=== PATIENT | female | born 1945 | race Caucasian/White ===

== ENCOUNTER → 2018-04-09 12:29 | Outpatient (CLI) | payer MEDICARE, OTHER, SELFPAY ==
--- NOTE | 2018-04-09 | DI.MG.S_ITS ---
UNILATERAL RIGHT DIGITAL SCREENING MAMMOGRAM 3D/2D WITH CAD POST MASTECTOMY: 04/09/2018 CLINICAL: Routine screening. Personal history of left breast cancer. Comparison is made to exams dated: 05/25/2017 ultrasound, 05/18/2017 breast MRI, and 04/08/2017 mammogram - [facility]. The tissue of the right breast is heterogeneously dense. This may lower the sensitivity of mammography. Current study was also evaluated with a Computer Aided Detection (CAD) system. No significant masses, calcifications, or other findings are seen in the breast. There has been no significant interval change. IMPRESSION: NEGATIVE There is no mammographic evidence of malignancy. A 1 year screening mammogram is recommended. This exam was interpreted at Station ID: [id number]. NOTE: For mammograms, a report in lay terms will be sent to the patient. Approximately 15% of breast malignancies will not be visualized mammographically. In the management of a palpable breast mass, a negative mammogram must not discourage biopsy of a clinically suspicious lesion. Electronically Signed By: Jonathan escobedo/aneudy:04/09/2018 15:40:07 copy to: Amy Barnes copy to: Marissa Singletary letter sent: Normal Exam ACR BI-RADS Category 1: Negative [id number]
== END ==
PROVIDERS: PCP Family Medicine; Visit Provider Radiology Radiation Oncology
DX: Z12.31 Encounter for screening mammogram for malignant neoplasm of breast (principal); Z85.3 Personal history of malignant neoplasm of breast
CPT/HCPCS: 77063; 77065

== ENCOUNTER 2018-08-02 15:26 | Emergency (ER) | payer MEDICARE, OTHER, SELFPAY ==
[2018-08-02] VITALS (9 sets, daily range): BP systolic 101–120; BP diastolic 69–83; PULSE 107–189; RESP 16–20; TEMP 36.7; O2SAT 95–100; BMI 27.3
--- NOTE | 2018-08-02 15:38 | ED.ARRPALP ---
HPI - Arrhythmia/Palpitations General Chief Complaint: Arrhythmia/Palpitations Stated Complaint: states AFIB, SOB Time Seen by Provider: 08/02/18 15:38 Source: patient Mode of arrival: ambulatory Limitations: no limitations History of Present Illness HPI narrative: Patient is a 72-year-old female with persistent AFib who on Thursday was started on metoprolol 100 mg b.i.d. by her nurse first aid. This was a change from verapamil that she had been taken for many years. She states that it was changed because the verapamil was not working anymore she states that her heart rate is elevated. She states that it is always elevated. She states that most of her life her heart rate is not less than 120 beats. Patient is on Eliquis. She states she has been taking her metoprolol. She states she has been getting short of breath however this does not seem to be new for her. She is also taking Torsemide I would states that her lower extremity swelling is better than what it normally is. Related Data Home Medications Medication Instructions Recorded Confirmed alprazolam [Xanax] 0.75 mg PO HSP #0 01/05/12 08/02/18 apixaban [Eliquis] 5 mg PO BID #0 05/26/17 08/02/18 atorvastatin [Lipitor] 10 mg PO QPM #0 05/26/17 08/02/18 losartan [Cozaar] 100 mg PO QDAY #0 06/19/17 08/02/18 fluticasone 50 mcg/actuation nasal 1 spray NASAL DAILY 04/27/18 08/02/18 spray,suspension furosemide 20 mg tablet 30 mg PO DAILY 04/27/18 08/02/18 verapamil ER (SR) 180 mg 180 mg PO BID tab 07/27/18 08/02/18 tablet,extended release diclofenac sodium 1 applic TOPICAL DIRECTED 08/02/18 08/02/18 hydrochlorothiazide 1 tab PO DAILY 08/02/18 08/02/18 hydrocodone-acetaminophen 1 tab PO DAILY 08/02/18 08/02/18 lidocaine 1 patch TOPICAL DAILY 08/02/18 08/02/18 metoprolol succinate 1 tab PO BID 08/02/18 08/02/18 montelukast 1 tab PO DAILY 08/02/18 08/02/18 potassium chloride 1 tab PO DAILY 08/02/18 08/02/18 torsemide 20 mg PO DAILY 08/02/18 08/02/18 Allergies Allergy/AdvReac Type Severity Reaction Status Date / Time Sulfa (Sulfonamide Allergy Severe BODY RASH Verified 08/02/18 15:46 Antibiotics) [SULFA (SULFONAMIDE ANTIBIOTICS)] latex [LATEX] Allergy Intermediate RASH Verified 08/02/18 15:46 Penicillins [PENICILLINS] Allergy Unknown AFIB Verified 08/02/18 15:46 adhesive tape AdvReac Verified 08/02/18 15:46 BENEDRYL AdvReac Intermediate HIGH HEART Uncoded 08/02/18 15:46 RATE Hospital bed sheets AdvReac Mild Uncoded 08/02/18 15:46 Review of Systems Constitutional Denies fever(s) ENT Ears, Nose, Mouth, and Throat: Denies vertigo Cardiovascular Denies chest pain, Denies syncope, Reports rapid heart rate, Denies pedal edema, Reports irregular heart rhythm, Denies lightheadedness, Reports palpitations, Reports dyspnea and Reports dyspnea on exertion Respiratory Reports dyspnea, Reports dyspnea on exertion, Denies stridor and Denies wheezing Gastrointestinal Gastrointestinal: Denies abdominal pain and Denies change in stool character Musculoskeletal Denies myalgias and Denies arthralgias Integumentary/Breasts Denies lesions and Denies rash Neurologic Denies vertigo and Denies syncope Endocrine Reports palpitations Hematologic/Lymphatic Denies easy bleeding and Denies easy bruising Allergic/Immunologic Denies wheezing COUNT INCLUDES THE [facility] Medical History Rheumatoid arthritis (Acute ~2003) Surgical History H/O left breast biopsy (Acute ~05/05/17) History of total left hip replacement (Acute ~2011) History of total right hip replacement (Acute ~2009) Hx of heart artery stent (Acute ~2002) Social History Smoking Status: Never smoker Exam Initial Vital Signs Initial Vital Signs: Vital Signs Temperature 98.0 F 08/02/18 15:42 Pulse Rate 160 H 08/02/18 15:42 Respiratory Rate 17 08/02/18 15:42 Blood Pressure 118/74 08/02/18 15:42 Pulse Oximetry 96 08/02/18 15:42 Const General: cooperative, comfortable, well developed, well groomed and No acute distress Orientation: alert, awake and oriented x3 HENMT Head: normal to inspection and normocephalic Resp Effort & Inspection: normal respiratory effort Auscultation: clear to auscultation bilaterally Cardio Rate: tachycardic Rhythm: abnormal rhythm irregularly irregular Pulses: radial pulses present GI Inspection: non-distended Palpation: soft Skin Lesions: no lesions Rashes: no rashes Neuro General: alert, awake and oriented x3 Cognition: normal cognition Speech: speech normal Gait: normal gait Motor: muscle tone normal throughout Sensory Exam: no sensory deficits noted Extrem General: normal to inspection, capillary refill normal and No edema Psych Appearance: grossly normal and well kempt Course Orders Ordered: Discontinued Medications Diltiazem HCl (Cardizem) 20 mg IV NOW ONE Stop: 08/02/18 16:15 Last Admin: 08/02/18 16:14 Dose: 20 mg MDM - Arrhythmia/Palpitations Lab Data Attestation: I reviewed the patient's lab results. Result diagrams: 08/02/18 15:42 08/02/18 15:42 Lab Results 08/02/18 08/02/18 08/02/18 Range/Units 15:42 15:42 17:30 WBC 9.1 (4.5-11.0) X10^3/uL RBC 3.63 L (4.0-5.2) X10^6/uL Hgb 10.1 L (12.0-16.0) g/dL Hct 30.6 L (36-46) % MCV 84.3 (80-100) fL MCH 27.8 (26-34) PG MCHC 32.9 (30-36) % RDW 19.2 H (11.6-14.8) % Plt Count 407 H (150-400) X10^3/uL Neut % (Auto) 69.1 (50-75) % Lymph % (Auto) 21.7 L (25-40) % Boyd % (Auto) 7.8 (3-14) % Eos % (Auto) 0.5 L (2-4) % Baso % (Auto) 0.9 (0-2) % Neut # (Auto) 6300 H (4220-1709) /uL Sodium 140 (137-145) mmol/L Potassium 3.8 (3.4-5.1) mmol/L Chloride 101 (98-107) mmol/L Carbon Dioxide 19 L (22-32) mmol/L BUN 71 H (7-17) mg/dL Creatinine 2.30 H (0.52-1.04) mg/dL Estimated GFR 20.7 L (>60) mL/min BUN/Creatinine Ratio 30.9 H (6-22) Glucose 161 H (80-110) mg/dL Calcium 8.9 (8.4-10.2) mg/dL TSH 0.50 (0.47-4.68) uIU/mL Imaging Data Chest x-ray: Attestation: I personally reviewed and interpreted this imaging study as follows: My impression: Left-sided breast implant normal size heart No focal consolidation ECG Data Attestation: I personally reviewed and interpreted this ECG as follows: Prior ECG tracings: not available for review Interpretation: atrial fibrillation ventricular rate of 168 normal QRS Normal QTC nonspecific ST T wave changes MDM Narrative Medical decision making narrative: appears that the patient has been tachycardic greater than 120 for an extended period of time. She was just switched to metoprolol 3 days ago. She was given diltiazem here in the emergency department which brought her heart rate down from the 160s-190s to 120's-140's. patient's blood pressure has been stable during her entire stay here in the emergency department. I did discuss the case with her nurse first aid Dr. Evans who recommended that we increase the metoprolol to 150 mg b.i.d.. Patient has been ambulatory in the emergency department. Patient does have a follow-up this week with her nurse first aid. She was given return precautions. I feel that given the fact that she has been tachycardic for so long and we have a plan to increase the metoprolol that sending her home is not unreasonable. I did discuss this with the patient. She and her both expressed understanding and agreement with plan. Discharge Plan Departure Patient Disposition: Home Clinical Impression: Atrial fibrillation with RVR Discharge Date/Time: 08/02/18 17:42 Interventions: ED Discharge Assessment Last Done: 08/02/18 17:41 Instructions: DI for Atrial Fibrillation Activity Restrictions/Additional Instructions: I talked with your nurse first aid today. He recommended increasing your metoprolol from 100 mg twice a day to 150 mg twice a day. Keep your scheduled medical appointments that you have this week. I added the thyroid test to your labs today. That was pending at the time of your discharge. Return to the emergency department for any new or worsening symptoms Prescriptions: No Action alprazolam [Xanax] 0.5 MG tablet 0.75 mg PO HSP Qty: 0 RF: 0 atorvastatin [Lipitor] 10 MG tablet 10 mg PO QPM Qty: 0 RF: 0 apixaban [Eliquis] 5 MG tablet 5 mg PO BID Qty: 0 RF: 0 losartan [Cozaar] 100 MG tablet 100 mg PO QDAY Qty: 0 RF: 0 furosemide 20 mg tablet 30 mg PO DAILY RF: 0 fluticasone 50 mcg/actuation spray,suspension 1 spray NASAL DAILY RF: 0 verapamil 180 mg tablet extended release 180 mg PO BID RF: 0 torsemide 20 mg tablet 20 mg PO DAILY RF: 0 hydrocodone-acetaminophen 5-325 mg tablet 1 tab PO DAILY RF: 0 lidocaine 5 % adhesive patch,medicated 1 patch Topical DAILY RF: 0 montelukast 10 mg tablet 1 tab PO DAILY RF: 0 hydrochlorothiazide 25 mg tablet 1 tab PO DAILY RF: 0 diclofenac sodium 1 % gel 1 applic Topical DIRECTED RF: 0 potassium chloride 20 mEq tablet extended release 1 tab PO DAILY RF: 0 metoprolol succinate 100 mg tablet extended release 24 hr 1 tab PO BID RF: 0
--- NOTE | 2018-08-02 15:40 | DI.RAD.S_ITS ---
PROCEDURE: XR CHEST 1V INDICATIONS: Palpitations TECHNIQUE: One view of the chest was acquired. COMPARISON: [facility], , CHEST 1 VIEW, 06/02/2017, 9:46. FINDINGS: Surgical changes and devices: Surgical clips are noted in left axilla and left breast. Lungs and pleura: No pleural effusions or pneumothorax. Mild pulmonary vascular congestion is seen. No definite focal infiltrate. Mediastinum: Mediastinal contours appear normal. Heart size is borderline enlarged. Bones and chest wall: No suspicious bony lesions. Overlying soft tissues appear unremarkable. IMPRESSION: Mild congestion and borderline cardiomegaly. No definite focal infiltrate or gross pneumothorax. Dictated by: Tahir Diez M.D. on 08/03/2018 at 9:19 Approved by: Tahir Diez M.D. on 08/03/2018 at 9:21
[2018-08-02 16:07] LABS: Add Manual Diff / Slide Review NO; Basophils Percent Auto 0.9 % (0-2); Eosinophils Percent Auto 0.5 % (2-4); Hematocrit 30.6 % (36-46); Hemoglobin 10.1 g/dL (12.0-16.0); Lymphocytes Percent Auto 21.7 % (25-40); Mean Corpuscular HGB Conc 32.9 % (30-36); Mean Corpuscular Hemoglobin 27.8 PG (26-34); Mean Corpuscular Volume 84.3 fL (80-100); Monocytes Percent Auto 7.8 % (3-14); Neutrophils Absolute Auto 6300 /uL (3000-5900); Neutrophils Percent Auto 69.1 % (50-75); Platelet Count 407 X10^3/uL (150-400); Red Blood Cell Count 3.63 X10^6/uL (4.0-5.2); Red Cell Distribution Width 19.2 % (11.6-14.8); White Blood Cell Count 9.1 X10^3/uL (4.5-11.0)
[2018-08-02 16:14] LABS: BUN Creatinine Ratio 30.9 (6-22); Blood Urea Nitrogen 71 mg/dL (7-17); Calcium 8.9 mg/dL (8.4-10.2); Carbon Dioxide 19 mmol/L (22-32); Chloride 101 mmol/L (98-107); Estimated Glomerular Filt Rate 20.7 mL/min (>60); Glucose 161 mg/dL (80-110); HEMOLYSIS < 15 (0-50); Potassium 3.8 mmol/L (3.4-5.1); Sodium 140 mmol/L (137-145)
[2018-08-02] MEDS: dilTIAZem 5 MG/ML SDV 20 MG IV (16:14)
== END 2018-08-02 17:42 | disposition home or self-care (01) ==
PROVIDERS: Emergency Provider Emergency Medicine; PCP Family Medicine
DX: I48.91 Unspecified atrial fibrillation (principal)
CPT/HCPCS: 36591; 71045; 80048; 84443; 85025; 93005; 96374; 99284; 99285

== ENCOUNTER → 2018-08-04 10:28 | Outpatient (CLI) | payer MEDICARE, OTHER, SELFPAY ==
--- NOTE | 2018-08-04 | DI.ECHO.S_ITS ---
[facility]---------+ [facility] +---------+ : : [address] : [address] : : : : [id number] : : : : Phone: [phone]+ Echocardiogram Report + + :Name: ANDI MORRIS Study Date: 08/04/2018 Height: 61 in : :[facility] Exam Location: [facility] Weight: 139 lb : : Gender: Female BSA: 1.6 m2 : :: 1945 Age: 72 yrs BP: 100/60 mmHg: :Reason For Study: Cardiomyopathy : :Ordering Physician: Neal : :Cristina Performed By: Katie Bonilla : :Referring: NEAL LIRA : + + Interpretation Summary The left ventricle is normal in size. Left ventricular systolic function is mild to moderately reduced. The ejection fraction is estimated to be 40-45%. Compared to the prior exam, the left ventricular function is improved. There is moderate global hypokinesis of the left ventricle. Borderline right ventricular enlargement. Right ventricular systolic function is mildly reduced. The right ventricular systolic pressure is estimated to be at least 36 mmHg based on an estimated right atrial pressure of 15 mm Hg. Both atria are moderately dilated. A patent foramen ovale is suspected. There is moderate mitral regurgitation. There is moderate tricuspid regurgitation. Both MR and TR have increased. There is no other significant valvular heart disease. The ascending aorta is normal in size. Procedure: A two-dimensional transthoracic echocardiogram with color flow and Doppler was performed. The study quality was technically adequate. Images from the parasternal window were difficult to obtain and are suboptimal in quality. The patient recently underwent a masectomy. Limited parasternal imaging was obtainable. Comparison is made with the echocardiogram of 06/01/2017. The patient was in atrial fibrillation with heart rates between 65- 109 bpm during the exam. Left Ventricle: The left ventricle is normal in size. Left ventricular systolic function is mild to moderately reduced. The ejection fraction is estimated to be 40-45%. Compared to the prior exam, the left ventricular function is improved. There is moderate global hypokinesis of the left ventricle. Diastolic function could not be accurately assessed due to atrial fibrillation. Right Ventricle: Borderline right ventricular enlargement. Right ventricular systolic function is mildly reduced. Atria: Both atria are moderately dilated. A patent foramen ovale is suspected. Mitral Valve: The mitral valve leaflets appear borderline thickened, but open well. There is mild mitral annular calcification. There is moderate mitral regurgitation. Aortic Valve: The aortic valve is trileaflet. The aortic valve opens well. No aortic regurgitation is present. Tricuspid Valve: The tricuspid valve is normal in structure and function. The right ventricular systolic pressure is estimated to be at least 36 mmHg based on an estimated right atrial pressure of 15 mm Hg. There is moderate tricuspid regurgitation. Pulmonic Valve: The pulmonic valve is not well seen, but is grossly normal. There is a trace or physiologic amount of pulmonic regurgitation. There is no other significant valvular heart disease. Great Vessels: The ascending aorta is normal in size. The IVC is dilated (diameter is greater than 2.1 cm) and it collapses less than 50% with a sniff. This suggests a high right atrial pressure of 15 mm Hg. Pericardium/ Pleura There is no pericardial effusion. There is no pleural effusion. MMode/2D Measurements & Calculations LVOT diam: 2.3 cm LA A2 area: 24.6 cm2 asc Aorta Diam: 3.4 cm LA A4 area: 21.7 cm2 Ao Arch Diam (Prox Trans): 2.6 cm LA length (vol): 6.0 cm LA vol: 75.5 ml LA vol index: 46.7 ml/m2 RA long axis: 5.7 cm TAPSE: 1.2 cm RA area: 20.0 cm2 RA vol: 59.8 ml RA : 37.0 ml/m2 IVC diam: 2.3 cm Doppler Measurements & Calculations Ao V2 max: 94.3 cm/sec LVOT Max Alek: 68.6 cm/sec Ao V2 mean: 67.2 cm/sec LV V1 max P.9 mmHg Ao max P.6 mmHg LV V1 VTI: 13.3 cm Ao mean P.9 mmHg LIZ(I,D): 3.2 cm2 Ao V2 VTI: 17.4 cm LIZ(V,D): 3.0 cm2 sev ratio: 0.76 LIZ indexed to BSA (cm^2/m^2): 2.0 TR max alek: 229.9 cm/sec TR max P.1 mmHg Reading Physician:PM
== END ==
PROVIDERS: PCP Family Medicine; Visit Provider Internal Medicine Cardiovascular Disease
DX: I08.1 Rheumatic disorders of both mitral and tricuspid valves (principal); I42.9 Cardiomyopathy, unspecified
CPT/HCPCS: 93306

== ENCOUNTER → 2019-01-06 07:53 | Outpatient (CLI) | payer MEDICARE, OTHER, SELFPAY ==
--- NOTE | 2019-01-06 | DI.ECHO.S_ITS ---
[place] +---------+ Hospital +---------+ : : [address] : [address] : : : : [id number] : : : : Phone: [phone] : [phone] +[phone]+ Echocardiogram Report + + :Name: ANDI MORRIS Study Date: 01/06/2019 Height: 61 in : :[facility] Weight: 144 lb : : Gender: Female BSA: 1.6 m2 : :: 1945 Age: 73 yrs BP: 128/50 mmHg: :Reason For Study: Cardiomyopathy : :Ordering Physician: Avelino : :Fredis Performed By: Laurie Keller : :Referring: Marissa Singletary : + + Interpretation Summary The ejection fraction is estimated to be 40-45%. There has been no significant change since the previous exam. There is mild to moderate global hypokinesis of the left ventricle. The right ventricle is borderline dilated. The left atrium is severely dilated. A patent foramen ovale is present. There is mild to moderate mitral regurgitation. There is mild tricuspid regurgitation. The right ventricular systolic pressure is estimated to be at least 27 mmHg based on an estimated right atrial pressure of 3 mm Hg. Compared to the prior echo exam, there has been a decrease in TR severity. Procedure: A two-dimensional transthoracic echocardiogram with color flow and Doppler was performed. The study quality was technically adequate. Comparison is made with the echocardiogram of 10-31-18. The patient was in atrial fibrillation with heart rates between 83-106 bpm during the exam. Left Ventricle: The left ventricle is normal in size. Left ventricular wall thickness is borderline increased. The ejection fraction is estimated to be 40-45%. There has been no significant change since the previous exam. There is mild to moderate global hypokinesis of the left ventricle. Right Ventricle: The right ventricle is borderline dilated. Right ventricular systolic function is borderline reduced. Atria: The left atrium is severely dilated. The right atrium is borderline dilated. A patent foramen ovale is present. Mitral Valve: The mitral valve leaflets appear borderline thickened, but open well. There is mild to moderate mitral regurgitation. Aortic Valve: The aortic valve opens well. No aortic regurgitation is present. Tricuspid Valve: The tricuspid valve leaflets are thin and pliable. There is mild tricuspid regurgitation. The right ventricular systolic pressure is estimated to be at least 27 mmHg based on an estimated right atrial pressure of 3 mm Hg. Compared to the prior echo exam, there has been a decrease in TR severity. Pulmonic Valve: The pulmonic valve is not well seen, but is grossly normal. There is trace pulmonic regurgitation. Great Vessels: The aortic root is normal size. The ascending aorta is normal in size. The aortic arch is at the upper limits of normal in size. The IVC is of normal diameter and collapses greater than 50% with a sniff. This suggests a low right atrial pressure of 3 mm Hg. Pericardium/ Pleura There is no pericardial effusion. There is no pleural effusion. MMode/2D Measurements & Calculations LVIDd: 4.1 cm Ao root diam: 3.4 cm LVIDs: 3.2 cm Aortic Jxn: 2.9 cm FS: 22.5 % asc Aorta Diam: 3.3 cm IVSd: 1.2 cm LVPWd: 0.92 cm LV khalil. diameter/BSA (cm/m^2): 2.5 LV sys. diameter/BSA (cm/m^2): 2.0 LA dimension: 4.2 cm RA long axis: 5.0 cm LA A2 area: 25.7 cm2 RA area: 19.2 cm2 LA A4 area: 22.4 cm2 RA vol: 62.4 ml LA length (vol): 5.5 cm RA : 38.0 ml/m2 LA vol: 89.2 ml IVC diam: 1.7 cm LA vol index: 54.3 ml/m2 RVDd major: 6.2 cm RVD1 (basal): 3.6 cm RVD2 (mid): 3.0 cm Doppler Measurements & Calculations Ao V2 max: 110.9 cm/sec MV E max alek: 102.3 cm/sec Ao V2 mean: 77.4 cm/sec MV A max alek: 37.2 cm/sec Ao max P.9 mmHg MV E/A: 2.8 Ao mean P.7 mmHg Med Peak E' Alek: 6.1 cm/sec Ao V2 VTI: 22.3 cm E/E' med: 16.8 Lat Peak E' Alek: 10.3 cm/sec E/E' lat: 9.9 E/e' average: 13.3 MV dec time: 0.18 sec MV P1/2t: 55.1 msec MR ERO: 0.11 cm2 TR max alek: 247.0 cm/sec MV P1/2t max alek: 101.7 cm/sec TR max P.4 mmHg MVA(P1/2t): 4.0 cm2 PA V2 max: 59.3 cm/sec PA V2 mean: 36.0 cm/sec PA mean P.64 mmHg PA Accel Time: 0.13 sec MR flow rate: 51.5 cm3/sec MR PISA radius: 0.46 cm Reading Physician:10:57 AM
== END ==
PROVIDERS: PCP Family Medicine; Visit Provider Specialist
DX: I08.1 Rheumatic disorders of both mitral and tricuspid valves (principal); I42.9 Cardiomyopathy, unspecified
CPT/HCPCS: 93306

== ENCOUNTER → 2019-06-30 07:00 | Day surgery (SDC) | payer MEDICARE, OTHER, SELFPAY | END | disposition home or self-care (01) | PROVIDERS: PCP Family Medicine; Visit Provider Ophthalmology | DX: H25.11 Age-related nuclear cataract, right eye (principal); Z53.9 Procedure and treatment not carried out, unspecified reason | CPT/HCPCS: 66984; J2250; J3010 ==

== ENCOUNTER 2019-07-14 07:19 | Day surgery (SDC) | payer MEDICARE, OTHER, SELFPAY ==
[2019-07-14] MEDS: PROPARACAINE 0.5% OPHTH SOL 2 DROPS EYE-OP (07:40)
[2019-07-14] MEDS: CATARACT EYE COMPOUND (10 DROPS/SYRINGE) 3 DROPS EYE-OP (07:45)
--- NOTE | 2019-07-14 07:47 | PM.PREOP ---
Pre-operative Note Interval Note History & Physical reviewed/Exam performed by Physician: Yes Changes to H&P: No
--- NOTE | 2019-07-14 07:53 | SUR.PREOP ---
PT IS NOT SURE OF HER HOME MEDICATIONS AND STATES SHE WILL BRING HER UPDATED LIST NEXT TIME
[2019-07-14 07:55] VITALS: BP 132/66; PULSE 59; RESP 15; TEMP 36.3; O2SAT 100; BMI 27.3
[2019-07-14] MEDS: BALANCED SALT IRRIG SOLN NO.2 15 ML 5 ML IRR (08:27)
[2019-07-14] MEDS: CHONDROIDTIN/SOD HYALURONATE 1.05 ML SYRINGE INTRAOCULA (08:27)
[2019-07-14] MEDS: LIDOCAINE 2% INJ SDV 2 ML INJ (08:28)
[2019-07-14] MEDS: MOXIFLOXACIN 0.5% OPHTH 60 DROPS/BOTTLE DROPS EYE-BOTH (08:28)
[2019-07-14] MEDS: PHENYLEPHRINE/LIDOCAINE VIAL (OR) 0.2 ML EYE-OP (08:28)
[2019-07-14] MEDS: BALANCED SALT IRRIG SOLN NO.2 500 ML, EPINEPHrine 1 MG IRR (08:29)
[2019-07-14] MEDS: TETRACAINE 0.5% OPHTH DROPS 4 ML 2 DROPS EYE-OP (08:29)
--- NOTE | 2019-07-14 08:49 | PM.OP.1 ---
Procedure & Clinicians Procedure: Cataract extraction with intraocular lens implant, right Same procedure as scheduled: Yes Indications: Age related nuclear sclerosis, visually significant, right. Surgeon: Jamel Gaston Click Yes if Unassisted: Yes Anesthesia Type: MAC +/- Operative Notes Procedure in detail: The patient was brought to the operating suite. The correct patient, surgical site and lens were confirmed. 0.5 % tetracaine drops were placed in the right eye. The patient was prepped and draped in the typical sterile manner. A lid speculum was placed in the eye. 2% lidocaine was placed on the eye. A paracentesis port was created with a side-port blade. 0.1 mL of 1% preservative free lidocaine with phenylephrine was injected into the anterior chamber. Viscoelastic was injected into the anterior chamber. A 2.6mm keratome was used to create a clear corneal temporal incision. Cystotome and Utrata forceps were used to create a continuous curvilinear capsulorrhexis. Balanced salt solution was used to hydrodissect the nucleus. Phacoemulsification was used to remove the lens. The capsular bag was inflated with viscoelastic. A Salcedo ZCBOO +21.0D lens was inserted into the capsule. Viscoelastic was removed and the wound hydrated. The wound was found to be leak free and the eye was assessed to be at normal physiologic pressure. 0.1mL Vigamox was injected into the anterior chamber. The lid speculum was removed and the patient left the operating room in excellent condition. Complications: none Post-operative Condition: stable Disposition: same day surgery
--- NOTE | 2019-07-14 08:53 | PM.PREOP ---
Pre-operative Note Interval Note History & Physical reviewed/Exam performed by Physician: Yes Changes to H&P: No
[2019-07-14 08:55] VITALS: BP 127/67; PULSE 57; RESP 14; TEMP 36.6; O2SAT 99
[2019-07-14 09:01] VITALS: BP 128/54; PULSE 56; RESP 14; TEMP 36.4; O2SAT 100
== END 2019-07-14 09:14 | disposition home or self-care (01) ==
PROVIDERS: PCP Family Medicine; Visit Provider Ophthalmology
PROC: (CPT 66984; principal; 2019-07-14 08:30)
DX: H25.11 Age-related nuclear cataract, right eye (principal)
CPT/HCPCS: 66984; J0171; J2250; J3010

== ENCOUNTER 2019-07-28 06:07 | Day surgery (SDC) | payer MEDICARE, OTHER, SELFPAY ==
[2019-07-28] MEDS: PROPARACAINE 0.5% OPHTH SOL 2 DROPS EYE-OP (07:10)
[2019-07-28] MEDS: CATARACT EYE COMPOUND (10 DROPS/SYRINGE) 3 DROPS EYE-OP (07:14)
[2019-07-28 07:15] VITALS: BP 108/55; PULSE 54; RESP 15; TEMP 36.4; O2SAT 100; BMI 28.1
--- NOTE | 2019-07-28 07:22 | PM.PREOP ---
Pre-operative Note Interval Note History & Physical reviewed/Exam performed by Physician: Yes Changes to H&P: No
[2019-07-28] MEDS: PHENYLEPHRINE/LIDOCAINE VIAL (OR) 0.2 ML EYE-OP (08:04)
[2019-07-28] MEDS: MOXIFLOXACIN INJ 5 MG/ML VIAL EYE-OP (08:04)
[2019-07-28] MEDS: LIDOCAINE 2% INJ SDV 2 ML INJ (08:04)
[2019-07-28] MEDS: BALANCED SALT IRRIG SOLN NO.2 500 ML, EPINEPHrine 1 MG IRR (08:05)
[2019-07-28] MEDS: TETRACAINE 0.5% OPHTH DROPS 4 ML 2 DROPS EYE-OP (08:06)
[2019-07-28] MEDS: CHONDROIDTIN/SOD HYALURONATE 1.05 ML SYRINGE INTRAOCULA (08:07)
[2019-07-28] MEDS: BALANCED SALT IRRIG SOLN NO.2 15 ML 5 ML IRR (08:07)
--- NOTE | 2019-07-28 08:28 | PM.OP.1 ---
Procedure & Clinicians Procedure: Cataract extraction with intraocular lens implant, left Same procedure as scheduled: Yes Indications: Visually significant age related nuclear sclerosis Surgeon: Jamel Gaston Click Yes if Unassisted: Yes Anesthesia Type: MAC +/- Operative Notes Procedure in detail: The patient was brought to the operating suite. The correct patient, surgical site and lens were confirmed. 0.5 % tetracaine drops were placed in the left eye. The patient was prepped and draped in the typical sterile manner. A lid speculum was placed in the eye. 2% lidocaine was placed on the eye. A paracentesis port was created with a side-port blade. 0.1 mL of 1% preservative free lidocaine with phenylephrine was injected into the anterior chamber. Viscoelastic was injected into the anterior chamber. A 2.6mm keratome was used to create a clear corneal temporal incision. Cystotome and Utrata forceps were used to create a continuous curvilinear capsulorrhexis. Balanced salt solution was used to hydrodissect the nucleus. Phacoemulsification was used to remove the lens. The capsular bag was inflated with viscoelastic. A Salcedo ZCBOO +21.0D lens was inserted into the capsule. Viscoelastic was removed and the wound hydrated. The wound was found to be leak free and the eye was assessed to be at normal physiologic pressure. 0.1mL Vigamox was injected into the anterior chamber. The lid speculum was removed and the patient left the operating room in excellent condition. Complications: none Post-operative Condition: stable Disposition: same day surgery
[2019-07-28 08:42] VITALS: BP 110/51; PULSE 47; RESP 16; TEMP 36.7; O2SAT 100
--- NOTE | 2019-07-28 08:54 | SUR.PHASEII ---
García called, on her way from [place]. Pt w/o complaints.
--- NOTE | 2019-07-28 09:23 | SUR.PHASEII ---
Friend arrived, pt left in stable condition.
== END 2019-07-28 09:10 | disposition home or self-care (01) ==
PROVIDERS: PCP Family Medicine; Visit Provider Ophthalmology
PROC: (CPT 66984; principal; 2019-07-28 07:45)
DX: H25.12 Age-related nuclear cataract, left eye (principal); I10 Essential (primary) hypertension; I50.9 Heart failure, unspecified
CPT/HCPCS: 66984; J0171; J2250; J3010

== ENCOUNTER → 2020-10-22 14:39 | Outpatient (CLI) | payer MEDICARE, OTHER, SELFPAY ==
--- NOTE | 2020-10-22 | DI.ECHO.S_ITS ---
[facility] +---------+ : : [address] : : : : [address] [place] : : : : [id number] : : : : Phone: [phone]+ Echocardiogram Report + + :Name: ANDI MORRIS Study Date: 10/22/2020 Height: 61 in : :[facility] ReadingLocation: Weight: 146 lb : : Gender: Female BSA: 1.7 m2 : :: 1945 Age: 75 yrs BP: 161/74 mmHg: :Reason For Study: OTHER CARDIOMYOPATHIES : :Ordering Physician: ALMA, : :PINKY Performed By: Raquel Francis : :Referring: PINKY MARQUEZ : + + Interpretation Summary Left ventricular systolic function appears normal with an estimated ejection fraction of 60 to 65% without any focal wall motion abnormalities and appears more dynamic compared to the previous study. Left ventricular size is normal, measuring 82 mL compared to 96 mL previously with borderline concentric LVH that is unchanged. Assessment of diastolic function and filling pressures is challenging because of contradictory data although there is some evidence for elevated filling pressures. The right ventricle grossly appears normal in size and systolic function and unchanged from the previous study. Right ventricular systolic pressure cannot be estimated but CVP is likely around 3 mmHg. The left atrium is moderately enlarged but slightly smaller compared to the previous study. There is mild right atrial enlargement that is unchanged from the previous study. While the interatrial septum visually appears intact, there is likely a small patent foramen ovale with left to right flow that is unchanged from the previous study. There is mild mitral and trivial tricuspid regurgitation, both less prominent compared to the previous study. There is aortic valve sclerosis without stenosis. The ascending aorta is borderline enlarged but unchanged from the previous study. The patient was in sinus bradycardia at 41 to 47 bpm compared to rapid atrial fibrillation on the previous study. Procedure: A two-dimensional transthoracic echocardiogram with color flow and Doppler was performed. The study quality was technically adequate. Best from apical window. The patient was in sinus bradycardia with heart rates between 41-47 bpm during the exam. This is replaced rapid atrial fibrillation compared to the previous study. Left Ventricle: The left ventricle is normal in size. The estimated left ventricular end diastolic volume is 82 mL compared to the previous 96 ml. There is borderline concentric left ventricular hypertrophy. Left ventricular systolic function appears normal without focal wall motion abnormalities. The ejection fraction is estimated to be 60-65%. This is more dynamic compared to the previous study. Diastolic function could not be accurately assessed due to contradictory data. Right Ventricle: The right ventricle is normal in size and function. This is unchanged compared to the previous study. Atria: The left atrium is moderately dilated. The left atrium has mildly decreased in size since the prior echo exam. The right atrium is mildly dilated. This is unchanged compared to the previous study. A patent foramen ovale is present. Mitral Valve: The mitral valve is grossly normal. There is mild mitral regurgitation. This is less prominent compared to the previous study. Aortic Valve: The aortic valve is trileaflet. The aortic valve is mildly calcified. The aortic valve opens well. There is no aortic valve stenosis. No aortic regurgitation is present. Tricuspid Valve: The tricuspid valve is normal in structure and function. There is trace tricuspid regurgitation. Pulmonary artery pressures cannot be estimated because of the lack of a measurable TR jet velocity but the IVC suggests a CVP of around 3 mmHg. This is Less prominent compared to the previous study. Pulmonic Valve: The pulmonic valve leaflets are thin and pliable; valve motion is normal. There is no pulmonic valvular regurgitation. Great Vessels: The aortic root is normal size. The ascending aorta is at the upper limits of normal in size. This is unchanged compared to the previous study. The IVC is of normal diameter and collapses greater than 50% with a sniff. This suggests a low right atrial pressure of 3 mm Hg. Pericardium/ Pleura There is no pericardial effusion. There is no pleural effusion. MMode/2D Measurements & Calculations LVIDd: 4.3 cm LVOT diam: 2.3 cm LVIDs: 3.2 cm Ao root diam: 3.5 cm FS: 26.7 % asc Aorta Diam: 3.3 cm EPSS: 0.26 cm Ao Arch Diam (Prox Trans): 2.3 cm IVSd: 1.0 cm LVPWd: 1.2 cm LV khalil. diameter/BSA (cm/m^2): 2.6 LV sys. diameter/BSA (cm/m^2): 1.9 LA A2 area: 24.5 cm2 RA long axis: 4.9 cm LA A4 area: 20.4 cm2 RA area: 19.1 cm2 LA length (vol): 5.5 cm RA vol: 63.9 ml LA vol: 77.2 ml RA : 38.7 ml/m2 LA vol index: 46.7 ml/m2 IVC diam: 1.8 cm RVD1 (basal): 3.6 cm TAPSE: 2.0 cm Doppler Measurements & Calculations Ao V2 max: 146.7 cm/sec LVOT Max Alek: 133.1 cm/sec Ao V2 mean: 107.8 cm/sec LV V1 max P.1 mmHg Ao max P.6 mmHg LV V1 VTI: 33.5 cm Ao mean P.1 mmHg LIZ(I,D): 3.7 cm2 Ao V2 VTI: 37.8 cm LIZ(V,D): 3.8 cm2 sev ratio: 0.89 LIZ indexed to BSA (cm^2/m^2): 2.2 MV E max alek: 90.2 cm/sec TR max alek: 232.7 cm/sec MV A max alek: 66.0 cm/sec TR max P.7 mmHg MV E/A: 1.4 PA V2 max: 61.2 cm/sec Med Peak E' Alek: 6.8 cm/sec PA V2 mean: 41.6 cm/sec E/E' med: 13.3 PA mean P.82 mmHg Lat Peak E' Alek: 6.7 cm/sec PA pr(Accel): 3.6 mmHg E/E' lat: 13.5 E/e' average: 13.4 MV dec time: 0.19 sec SV(LVOT): 138.6 ml Reading Physician:06:22 PM
== END ==
PROVIDERS: PCP Physician Assistant; Referring Provider Specialist; Visit Provider Specialist
DX: I34.0 Nonrheumatic mitral (valve) insufficiency (principal); I42.8 Other cardiomyopathies
CPT/HCPCS: 93306

== ENCOUNTER 2022-10-07 21:33 | Emergency (ER) | payer MEDICARE, OTHER, SELFPAY ==
[2022-10-07 21:45] VITALS: BP 138/83; PULSE 125; RESP 20; TEMP 37.1; O2SAT 95
--- NOTE | 2022-10-07 21:47 | DI.RAD.S_ITS ---
PROCEDURE: XR CHEST 1V INDICATIONS: SOB TECHNIQUE: One view of the chest was acquired. COMPARISON: [facility], CR, XR CHEST 1V, 08/02/2018, 15:44. FINDINGS: Surgical changes and devices: None. Lungs and pleura: There are increased left retrocardiac opacities consistent with consolidation or atelectasis. Small bilateral pleural effusions are demonstrated. Mediastinum: Mediastinal contours are unchanged. Heart size is enlarged. Bones and chest wall: No suspicious bony lesions. Overlying soft tissues appear unremarkable. IMPRESSION: 1. Increased left retrocardiac consolidation or atelectasis. 2. Small bilateral pleural effusions. Dictated by: Gavin Chilel M.D. on 10/07/2022 at 23:15 Approved by: Gavin Chilel M.D. on 10/07/2022 at 23:16
--- NOTE | 2022-10-07 22:00 | PC.NURSE ---
Assessment performed at this time
--- NOTE | 2022-10-07 22:12 | ED_ITS ---
HPI - General Adult General Chief complaint: Shortness of Breath/Dyspnea Stated complaint: SOB x 2 days w/ exertion Time Seen by Provider: 10/07/22 21:35 Source: patient, family and EMS Mode of arrival: EMS Limitations: no limitations History of Present Illness HPI narrative: 77-year-old female who is here for evaluation of what was initially described as 2 days of shortness of breath with exertion but turns out it is been more like several weeks or a month or longer. She states that she gets short of breath w hen she lays down or when she is up moving around. She denies chest pain. No palpitations. She has seen her primary doctor. Her primary doctor check some labs but otherwise has had no other changes. She is a history of atrial fibrillation. Is on Eliquis. Has taken all of her medications as directed. She denies any fevers. No lower extremity swelling. Denies any upper respiratory tract infection like symptoms. Related Data Home Medications Medication Instructions Recorded Confirmed alprazolam 0.5 mg tablet (Xanax) 0.75 mg PO HSP ##0 01/05/12 07/28/19 apixaban 5 mg tablet (Eliquis) 5 mg PO BID ##0 05/26/17 07/28/19 atorvastatin 10 mg tablet (Lipitor) 10 mg PO QPM ##0 05/26/17 07/28/19 losartan 100 mg tablet (Cozaar) 100 mg PO QDAY ##0 06/19/17 07/28/19 fluticasone propionate 50 1 spray intranasal DAILY 04/27/18 07/28/19 mcg/actuation nasal spray,suspension verapamil 180 mg tablet,extended 180 mg PO BID 07/27/18 07/28/19 release hydrochlorothiazide 25 mg tablet 1 tab PO DAILY 08/02/18 07/28/19 hydrocodone 5 mg-acetaminophen 325 1 tab PO DAILY 08/02/18 07/28/19 mg tablet lidocaine 5 % topical patch 1 patch topical DAILY 08/02/18 07/28/19 Previous Rx's Medication Instructions Recorded furosemide 40 mg tablet (Lasix) 40 mg PO DAILY #14 tabs 10/07/22 Allergies Allergy/AdvReac Type Severity Reaction Status Date / Time Sulfa (Sulfonamide Allergy Severe BODY RASH Verified 07/28/19 07:07 Antibiotics) [SULFA (SULFONAMIDE ANTIBIOTICS)] latex [LATEX] Allergy Intermediate RASH Verified 07/28/19 07:07 Penicillins [PENICILLINS] Allergy Unknown AFIB Verified 07/28/19 07:07 adhesive tape AdvReac Verified 07/28/19 07:07 BENEDRYL AdvReac Intermediate HIGH HEART Uncoded 07/28/19 07:07 RATE Hospital bed sheets AdvReac Mild Uncoded 07/28/19 07:07 Review of Systems Review of Systems ROS Unobtainable: All systems reviewed & are unremarkable except as noted in HPI and below Patient History Medical History Rheumatoid arthritis (~2003) Surgical History H/O left breast biopsy (~05/05/17) History of total left hip replacement (~2011) History of total right hip replacement (~2009) Hx of heart artery stent (~2002) Social History household members: spouse Smoking Status: Never smoker Smoking Status: Never smoker alcohol intake frequency: a few times a month Substance Use Type: does not use Exam Initial Vital Signs Initial Vital Signs: Vital Signs Temperature 98.8 F 10/07/22 21:45 Pulse Rate 125 H 10/07/22 21:45 Respiratory Rate 20 10/07/22 21:45 Blood Pressure 138/83 10/07/22 21:45 Pulse Oximetry 95 10/07/22 21:45 Oxygen Delivery Method 10/07/22 21:45 Const General: cooperative, comfortable and No ill appearing HENMT Head: normal to inspection Resp Effort & Inspection: normal respiratory effort, not labored and tachypneic Auscultation: clear to auscultation bilaterally, no rhonchi and no wheezes Cardio Rate: tachycardic Rhythm: regular rhythm GI Inspection: normal to inspection Palpation: soft and No tender Skin General: no rashes or lesions noted Neuro General: patient alert, patient awake, patient oriented x3 and moves all extremities Speech: speech normal Extrem General: No edema Psych Appearance: grossly normal and well kempt Course Orders Ordered: ED Orders 10/07/22 21:47 XR chest 1V Stat EKG-12 Lead Stat 10/07/22 22:30 Complete Blood Count AUTO DIFF Stat Comprehensive Metabolic Panel Stat Lipase Stat NT-proBNP (BNP-Adult 18+) Stat Troponin & CK Cardiac Panel Stat 10/07/22 22:35 Covid-19 + FLU A/B + RSV - PCR Stat Discontinued Medications Furosemide (Furosemide 40 Mg/4 Ml Vial) 40 mg IV NOW ONE Stop: 10/07/22 23:54 Last Admin: 10/08/22 00:00 Dose: 40 mg Documented By: GAVIN Vital Signs Vital signs: Vital Signs - 8 hr 10/07/22 21:45 10/07/22 22:33 10/07/22 23:00 Temperature 98.8 F Pulse Rate 125 H 125 H 121 H Respiratory Rate 20 33 H Blood Pressure 138/83 Pulse Oximetry 95 94 92 Oxygen Delivery Method Room Air Room Air 10/07/22 23:30 10/08/22 00:00 10/08/22 00:23 Temperature Pulse Rate 121 H 102 H 108 H Respiratory Rate 35 H 24 20 Blood Pressure 136/82 Pulse Oximetry 91 92 94 Oxygen Delivery Method Room Air Medical Decision Making Medical Records Medical records reviewed: Yes I reviewed the patient's medical records. Lab Data Lab results reviewed: Yes I reviewed the patient's lab results. Result diagrams: 10/07/22 22:30 10/07/22 22:30 Labs: Lab Results 10/07/22 10/07/22 10/07/22 Range/Units 22:30 22:30 22:35 WBC 6.2 (4.5-11.0) X10^3/uL RBC 2.77 L (4.0-5.2) X10^6/uL Hgb 7.4 L (12.0-16.0) g/dL Hct 23.7 L (36-46) % MCV 85.5 (80-100) fL MCH 26.8 (26-34) PG MCHC 31.3 (30-36) % RDW 19.3 H (11.6-14.8) % Plt Count 311 (150-400) X10^3/uL Neut % (Auto) 67.5 (50-75) % Lymph % (Auto) 19.4 L (25-40) % [place] % (Auto) 10.3 (3-14) % Eos % (Auto) 1.7 L (2-4) % Baso % (Auto) 1.1 (0-2) % Neut # (Auto) 4200 (2306-4477) /uL Lymph # (Auto) 1200 (1366-0195) /uL [place] # (Auto) 600 (0-900) /uL Eos # (Auto) 100 (0-450) /uL Baso # (Auto) 100 (0-100) /uL Sodium 142 (137-145) mmol/L Potassium 3.5 (3.4-5.1) mmol/L Chloride 113 H (98-107) mmol/L Carbon Dioxide 19 L (22-32) mmol/L BUN 28 H (7-17) mg/dL Creatinine 1.47 H (0.52-1.04) mg/dL Estimated GFR 36 L (>60) mL/min BUN/Creatinine Ratio 19.0 (6-22) Glucose 107 (80-110) mg/dL Calcium 8.2 L (8.4-10.2) mg/dL Total Bilirubin 0.9 (0.2-1.3) mg/dL AST 56 H (14-36) IU/L ALT 29 (<35) IU/L Alkaline Phosphatase 92 (38-126) U/L Total Creatine Kinase 101 (30-135) U/L CK-MB (CK-2) 1.01 (<2.37) ng/mL CK-MB (CK-2) Rel Index 1.0 L (1.5-5.0) % Troponin I 0.019 (0.01-0.034) ng/mL NT-Pro-B Natriuret Pep 29929 H (<450) pg/mL Total Protein 6.9 (6.3-8.2) g/dL Albumin 3.6 (3.5-5.0) g/dL Globulin 3.3 (1.7-4.1) g/dL Albumin/Globulin Ratio 1.1 (1.0-2.8) Lipase 226 (23-300) U/L SARS-CoV-2 (PCR) Negative (Negative) Influenza A (RT-PCR) Flu a negative (NEGATIVE) Influenza B (RT-PCR) Flu b negative (NEGATIVE) RSV (PCR) Negative (Negative) Imaging Data Chest x-ray: Radiologist's Impression: [address] [address] XRay Report Signed Patient: Willow Taylor MR#: [id number] : 1945 Acct:[id number] Age/Sex: 77 / F Date of Service: 10/07/22 Loc: ED Accession Number: [id number] ?? Procedure: XR chest 1V Ordering Provider: Jaron Braxton D.O. PROCEDURE:? XR CHEST 1V ? INDICATIONS:? SOB ? TECHNIQUE:? One view of the chest was acquired.? ? COMPARISON:? [facility], , XR CHEST 1V, 08/02/2018, 15:44. ? FINDINGS:? ? Surgical changes and devices:? None.? ? Lungs and pleura:? There are increased left retrocardiac opacities consistent with consolidation or atelectasis.? Small bilateral pleural effusions are demonstrated. ? Mediastinum:? Mediastinal contours are unchanged.? Heart size is enlarged. ? Bones and chest wall:? No suspicious bony lesions.? Overlying soft tissues appear unremarkable.? ? IMPRESSION:? ? 1. Increased left retrocardiac consolidation or atelectasis. ? 2. Small bilateral pleural effusions.? ? ? Dictated by: Gavin Chilel M.D. on 10/07/2022 at 23:15 ? ? Approved by: Gavin Chilel M.D. on 10/07/2022 at 23:16?? ECG Data Attestation: I personally reviewed and interpreted this ECG as follows: Interpretation: Atrial fibrillation Ventricular rate 128 Normal axis Normal QRS No ST T wave changes MDM Narrative Medical decision making narrative: Patient clinically does not have pneumonia. She does not have a productive cough, leukocytosis, fever nor abnormal lung exam. She is in atrial fibrillation but has a known history of atrial fibrillation. She denies any chest pain. Patient was tachycardic but it ranged anywhere from the low 100s to 120s. She does have an elevated BNP. She denied any history of heart failure. Her last echocardiogram in our system was more than 1 year ago. She denies being on any sort of Lasix. Review of her medical record does have a diagnosis of heart failure. Plan will be is to start the patient on Lasix. She was given a dose here in the ER. Will have her follow-up with her primary doctor and also her seismograph computer. Patient is not hypoxic. No indication for admission to the hospital for diuresis based on her presentation today. She was given return precautions. This discussion was had with the patient's son at bedside. They both expressed understanding and agreement. Discharge Plan Departure Patient Disposition: Home Clinical Impression: Dyspnea Instructions: DI for Shortness of Breath Activity Restrictions/Additional Instructions: We are going to start you on a new medicine called furosemide/Lasix. This is a medicine that you will take 1 time a day. Is electronically transmitted to [facility] in [place]. I recommend that tomorrow you contact your primary doctor and also your seismograph computer for follow-up. Return to the emergency department for any new symptoms. Continue the rest of your antibiotics as directed. Prescriptions: New furosemide [Lasix] 40 mg tablet 40 mg PO DAILY Qty: 14 0RF No Action alprazolam [Xanax] 0.5 MG tablet 0.75 mg PO HSP Qty: 0 atorvastatin [Lipitor] 10 MG tablet 10 mg PO QPM Qty: 0 Eliquis 5 MG tablet 5 mg PO BID Qty: 0 losartan [Cozaar] 100 MG tablet 100 mg PO QDAY Qty: 0 fluticasone propionate 50 mcg/actuation spray,suspension 1 spray NASAL DAILY verapamil 180 mg tablet extended release 180 mg PO BID hydrocodone-acetaminophen 5-325 mg tablet 1 tab PO DAILY lidocaine 5 % adhesive patch,medicated 1 patch Topical DAILY hydrochlorothiazide 25 mg tablet 1 tab PO DAILY Referrals: Lupe Hamilton PA-C [Primary Care Provider] - Stand Alone Forms: Patient Portal/API
--- NOTE | 2022-10-07 22:30 | PC.NURSE ---
blood drawn, labelled at bedside and sent to lab - tolerated well
[2022-10-07 22:33] VITALS: PULSE 125; O2SAT 94
[2022-10-07 22:45] LABS: Add Manual Diff / Slide Review NO; Basophils Absolute Auto 100 /uL (0-100); Basophils Percent Auto 1.1 % (0-2); Eosinophils Absolute Auto 100 /uL (0-450); Eosinophils Percent Auto 1.7 % (2-4); Hematocrit 23.7 % (36-46); Hemoglobin 7.4 g/dL (12.0-16.0); Lymphocytes Absolute Auto 1200 /uL (1100-4500); Lymphocytes Percent Auto 19.4 % (25-40); Mean Corpuscular HGB Conc 31.3 % (30-36); Mean Corpuscular Hemoglobin 26.8 PG (26-34); Mean Corpuscular Volume 85.5 fL (80-100); Monocytes Absolute Auto 600 /uL (0-900); Monocytes Percent Auto 10.3 % (3-14); Neutrophils Absolute Auto 4200 /uL (1500-7000); Neutrophils Percent Auto 67.5 % (50-75); Platelet Count 311 X10^3/uL (150-400); Red Blood Cell Count 2.77 X10^6/uL (4.0-5.2); Red Cell Distribution Width 19.3 % (11.6-14.8); White Blood Cell Count 6.2 X10^3/uL (4.5-11.0)
[2022-10-07 23:00] VITALS: PULSE 121; RESP 33; O2SAT 92
--- NOTE | 2022-10-07 23:00 | PC.NURSE ---
Resting quietly in NAD - no needs voiced - PWD with respirations equal and unlabored bilaterally - family at bedside - awaiting results
[2022-10-07 23:02] LABS: Alanine Aminotransferase 29 IU/L (<35); Albumin 3.6 g/dL (3.5-5.0); Albumin Globulin Ratio 1.1 (1.0-2.8); Alkaline Phosphatase 92 U/L (38-126); Aspartate Aminotransferase 56 IU/L (14-36); Bilirubin Total 0.9 mg/dL (0.2-1.3); Blood Urea Nitrogen 28 mg/dL (7-17); Calcium 8.2 mg/dL (8.4-10.2); Carbon Dioxide 19 mmol/L (22-32); Chloride 113 mmol/L (98-107); Creatine Kinase 101 U/L (30-135); Estimated Glomerular Filt Rate 36 mL/min (>60); Globulin 3.3 g/dL (1.7-4.1); Glucose 107 mg/dL (80-110); HEMOLYSIS < 15 (0-50); Lipase 226 U/L (23-300); Potassium 3.5 mmol/L (3.4-5.1); Sodium 142 mmol/L (137-145); Total Protein 6.9 g/dL (6.3-8.2)
[2022-10-07 23:14] LABS: NT-proBNP (BNP-Adult 18+) 15400 pg/mL (<450); Troponin I 0.019 ng/mL (0.01-0.034)
[2022-10-07 23:17] LABS: Creatine Kinase MB 1.01 ng/mL (<2.37)
[2022-10-07 23:21] LABS: Influenza A - CEPHEID Flu A NEGATIVE (NEGATIVE); Influenza B - CEPHEID Flu B NEGATIVE (NEGATIVE); Respiratory Syncytial Virus Negative (Negative)
[2022-10-07 23:27] LABS: COVID-19 CEPHEID 4-PLEX PCR Negative (Negative)
[2022-10-07 23:30] VITALS: PULSE 121; RESP 35; O2SAT 91
--- NOTE | 2022-10-07 23:34 | PC.NURSE ---
MD at bedside - family present
[2022-10-08] VITALS: PULSE 102; RESP 24; O2SAT 92
[2022-10-08] MEDS: FUROSEMIDE 40 MG/4 ML VIAL IV
[2022-10-08 00:23] VITALS: BP 136/82; PULSE 108; RESP 20; O2SAT 94
== END 2022-10-08 00:25 | disposition home or self-care (01) ==
PROVIDERS: Emergency Provider Emergency Medicine; PCP Physician Assistant
DX: R06.00 Dyspnea, unspecified (principal); I48.91 Unspecified atrial fibrillation; Z79.01 Long term (current) use of anticoagulants; Z79.899 Other long term (current) drug therapy; Z20.822 Contact with and (suspected) exposure to COVID-19
CPT/HCPCS: 0241U; 36415; 71045; 80053; 82550; 82553; 83690; 83880; 84484; 85025; 93005; 93010; 96374; 99284; J1940

== ENCOUNTER 2022-10-20 12:50 | Emergency (ER) | payer MEDICARE, OTHER, SELFPAY ==
[2022-10-20] VITALS (20 sets, daily range): BP systolic 128–157; BP diastolic 65–90; PULSE 75–145; RESP 12–25; TEMP 36.9; O2SAT 80–100; BMI 25.4
--- NOTE | 2022-10-20 13:03 | ED_ITS ---
HPI - Chest Pain General Chief Complaint: Arrhythmia/Palpitations Stated Complaint: AFIB DR belgica lovett T-14 Time Seen by Provider: 10/20/22 12:55 History of Present Illness HPI narrative: 77-year-old female nonsmoker with history of atrial fibrillation on anticoagulation, hypertension, hyperlipidemia presents with a chief rapid heart rate, palpitations and shortness of breath exertion, sent by her primary care provider. She is had no fever or chills and denies chest pain. She denies nausea, vomiting or diarrhea. She denies any swelling of her lower extremities. She denies any change in her medications. She states she is more short of breath when walking as well as when lying flat. She denies any missed doses of her Eliquis and states she has been on it for many years Related Data Home Medications Medication Instructions Recorded Confirmed alprazolam 0.5 mg tablet (Xanax) 0.75 mg PO HSP ##0 01/05/12 07/28/19 apixaban 5 mg tablet (Eliquis) 5 mg PO BID ##0 05/26/17 07/28/19 atorvastatin 10 mg tablet (Lipitor) 10 mg PO QPM ##0 05/26/17 07/28/19 losartan 100 mg tablet (Cozaar) 100 mg PO QDAY ##0 06/19/17 07/28/19 fluticasone propionate 50 1 spray intranasal DAILY 04/27/18 07/28/19 mcg/actuation nasal spray,suspension verapamil 180 mg tablet,extended 180 mg PO BID 07/27/18 07/28/19 release hydrochlorothiazide 25 mg tablet 1 tab PO DAILY 08/02/18 07/28/19 hydrocodone 5 mg-acetaminophen 325 1 tab PO DAILY 08/02/18 07/28/19 mg tablet lidocaine 5 % topical patch 1 patch topical DAILY 08/02/18 07/28/19 Previous Rx's Medication Instructions Recorded furosemide 40 mg tablet (Lasix) 40 mg PO DAILY #14 tabs 10/07/22 Allergies Allergy/AdvReac Type Severity Reaction Status Date / Time Sulfa (Sulfonamide Allergy Severe BODY RASH Verified 07/28/19 07:07 Antibiotics) [SULFA (SULFONAMIDE ANTIBIOTICS)] latex [LATEX] Allergy Intermediate RASH Verified 07/28/19 07:07 Penicillins [PENICILLINS] Allergy Unknown AFIB Verified 07/28/19 07:07 adhesive tape AdvReac Verified 07/28/19 07:07 BENEDRYL AdvReac Intermediate HIGH HEART Uncoded 07/28/19 07:07 RATE Hospital bed sheets AdvReac Mild Uncoded 07/28/19 07:07 Review of Systems Review of Systems Narrative: GENERAL: See HPI HEENT: Denies sinus pain, ear pain, sore throat, difficulty swallowing, dizziness. RESPIRATORY: See HPI CARDIOVASCULAR: See HPI GASTROINTESTINAL: Denies nausea, vomiting, abdominal pain, diarrhea, constipation, melena. : Denies dysuria, frequency, incontinence, hematuria, urinary retention. MUSCULOSKELETAL: denies weakness, joint pain, or bony pain SKIN: Denies rash, skin lesions, or other NEUROLOGIC: Denies weakness, headache, numbness, change in speech, confusion, seizures, incoordination. PSYCHIATRIC: No concerning psychosocial issues. 12 point review of systems is negative except for those stated above Patient History Medical History Rheumatoid arthritis (~2003) Surgical History H/O left breast biopsy (~05/05/17) History of total left hip replacement (~2011) History of total right hip replacement (~2009) Hx of heart artery stent (~2002) Social History household members: spouse Smoking Status: Never smoker Smoking Status: Never smoker alcohol intake frequency: a few times a month Substance Use Type: does not use Exam Narrative Exam Narrative: GENERAL: [77] year old patient appears stated age. Well-developed patient, in mild distress. HEAD: Atraumatic. Normocephalic. EYES: Pupils equal round and reactive. Extraocular motions intact. No scleral icterus. No injection or drainage. ENT: Nose without bleeding, purulent drainage. Throat without erythema, tonsillar hypertrophy or exudate. Airway patent. NECK: Trachea midline. Non tender CARDIOVASCULAR: Tachycardic and irregular rhythm without murmurs, gallops, or rubs. RESPIRATORY: No evidence of respiratory distress, faint crackles in bilateral bases GASTROINTESTINAL: Abdomen soft, non-tender, nondistended. EXTREMITIES: No edema or joint tenderness. BACK: Nontender without deformity or crepitance. No flank tenderness. NEURO: AOx3. SKIN: No rash or erythema of visible areas Initial Vital Signs Initial Vital Signs: Vital Signs Pulse Rate 134 H 10/20/22 12:57 Pulse Oximetry 99 10/20/22 12:57 Procedures Cardioversion Consent Signed: Yes Indication: Rapid AFib Stability: Stable Number of attempts (shocks): 1 Joules used: 120 Cardiac rhythm post-cardioversion: NSR Procedural Sedation Consent signed: Yes Time out performed: Yes Indication: cardioversion ASA Class: III Mallampati Airway Classification: Class II Preparation: wrapper rewinder applied, pulse oximeter, capnometry used, supplemental O2 applied, suction/airway equipment at bedside and IV secured IV Propofol dose (mg): 30 Intraservice time/total sedation time (min): 10 ED Sedation Level: Moderate (Concious) Patient Tolerated Procedure: Well Complications: none Course Orders Ordered: Discontinued Medications Sodium Chloride (Normal Saline 0.9%) 500 mls @ 1,000 mls/hr IV BOLUS ONE Stop: 10/20/22 13:30 Last Infusion: 10/20/22 14:34 Dose: 0 mls/hr Documented By: Admin: 10/20/22 13:45 Dose: 1,000 mls/hr Documented By: SHELLY Propofol (Propofol 200 Mg/20 Ml Vial) 100 mg IV NOW ONE Stop: 10/20/22 13:02 Last Admin: 10/20/22 13:44 Dose: 30 mg Documented By: SHELLY MDM - Chest Pain Lab Data Result diagrams: 10/20/22 13:00 10/20/22 13:00 Labs: Lab Results 10/20/22 10/20/22 10/20/22 Range/Units 13:00 13:00 13:00 WBC 6.3 (4.5-11.0) X10^3/uL RBC 3.37 L (4.0-5.2) X10^6/uL Hgb 8.6 L (12.0-16.0) g/dL Hct 27.7 L (36-46) % MCV 82.4 (80-100) fL MCH 25.4 L (26-34) PG MCHC 30.9 (30-36) % RDW 19.3 H (11.6-14.8) % Plt Count 362 (150-400) X10^3/uL Neut % (Auto) 68.1 (50-75) % Lymph % (Auto) 21.3 L (25-40) % [place] % (Auto) 8.5 (3-14) % Eos % (Auto) 1.0 L (2-4) % Baso % (Auto) 1.1 (0-2) % Neut # (Auto) 4300 (2187-7132) /uL Lymph # (Auto) 1300 (4993-7424) /uL [place] # (Auto) 500 (0-900) /uL Eos # (Auto) 100 (0-450) /uL Baso # (Auto) 100 (0-100) /uL PT 18.4 H (10.1-12.7) SECONDS INR 1.6 H (0.9-1.3) Sodium 142 (137-145) mmol/L Potassium 3.8 (3.4-5.1) mmol/L Chloride 103 (98-107) mmol/L Carbon Dioxide 25 (22-32) mmol/L BUN 24 H (7-17) mg/dL Creatinine 1.28 H (0.52-1.04) mg/dL Estimated GFR 43 L (>60) mL/min BUN/Creatinine Ratio 18.8 (6-22) Glucose 104 (80-110) mg/dL Calcium 9.0 (8.4-10.2) mg/dL Magnesium (1.6-2.3) mg/dL Total Creatine Kinase (30-135) U/L CK-MB (CK-2) CK-MB (CK-2) Rel Index Troponin I (0.01-0.034) ng/mL NT-Pro-B Natriuret Pep (<450) pg/mL 10/20/22 Range/Units 13:00 WBC (4.5-11.0) X10^3/uL RBC (4.0-5.2) X10^6/uL Hgb (12.0-16.0) g/dL Hct (36-46) % MCV (80-100) fL MCH (26-34) PG MCHC (30-36) % RDW (11.6-14.8) % Plt Count (150-400) X10^3/uL Neut % (Auto) (50-75) % Lymph % (Auto) (25-40) % [place] % (Auto) (3-14) % Eos % (Auto) (2-4) % Baso % (Auto) (0-2) % Neut # (Auto) (6983-9785) /uL Lymph # (Auto) (5000-9797) /uL [place] # (Auto) (0-900) /uL Eos # (Auto) (0-450) /uL Baso # (Auto) (0-100) /uL PT (10.1-12.7) SECONDS INR (0.9-1.3) Sodium (137-145) mmol/L Potassium (3.4-5.1) mmol/L Chloride (98-107) mmol/L Carbon Dioxide (22-32) mmol/L BUN (7-17) mg/dL Creatinine (0.52-1.04) mg/dL Estimated GFR (>60) mL/min BUN/Creatinine Ratio (6-22) Glucose (80-110) mg/dL Calcium (8.4-10.2) mg/dL Magnesium 2.0 (1.6-2.3) mg/dL Total Creatine Kinase 66 (30-135) U/L CK-MB (CK-2) TNP CK-MB (CK-2) Rel Index TNP Troponin I < 0.012 (0.01-0.034) ng/mL NT-Pro-B Natriuret Pep 45527 H (<450) pg/mL Point of Care Testing Test Results Not applicable MDM Narrative Medical decision making narrative: CC: Rapid heart rate shortness of breath Complicating co-morbidities: Age, AFib, hypertension, hyperlipidemia, anticoagulation, breast cancer Data collected from: Patient Medical records reviewed: Multiple prior ED visits Differential considered, but not limited to: AFib, CHF, pneumonia versus other Exam documented above, pertinent findings include: Rapid irregular heart rate with crackles in lung bases Lab Test results independently reviewed as above. Pertinent findings: Chronically anemic, no elevated white blood cell, electrolytes normal s Independently reviewed EKG as above rapid AFib Imaging studies independently reviewed: No acute process Treatments: Significant improvement after cardioversion Re-evaluations: Patient remains in normal sinus, significant improvement after cardioversion Discussion: Patient with palpitations, rapid heart rate and shortness of breath is found to be in rapid AFib. Difficult to tell but likely she has been in this for at least multiple days, she has been anticoagulated for many years and has missed no doses and appropriate for cardioversion. See procedure notes for details. She remains in normal sinus and asymptomatic in the aftermath, observed for an hour and discharged home. Disposition: see below, along with detailed discharge instructions that have been reviewed with patient as well as indications for ED re-evaluation and additional outpatient follow up Discharge Plan Departure Patient Disposition: Home Clinical Impression: Atrial fibrillation with RVR Instructions: DI for Atrial Fibrillation Activity Restrictions/Additional Instructions: *You have been diagnosed with [rapid atrial fibrillation with successful cardioversion] *What to do: *Please continue to take your regular medications as directed. [ ] New medication prescriptions sent to your pharmacy: [ ] [ ] New medication written as a paper prescription [ x] No new medications given *Please follow up with your primary electronic systems security assessment in 2-3 days, call for an appo intment. Let them know you were seen in the Emergency Department and that we ask that you be seen in follow up. We will electronically transmit a record of today's note *Return to Emergency Department if you should have any new, worsening or concerning symptoms, such as [fever greater than 101 F, shaking chills, worsening pain, persistent vomiting or other bothersome symptoms] Prescriptions: No Action alprazolam [Xanax] 0.5 MG tablet 0.75 mg PO HSP Qty: 0 atorvastatin [Lipitor] 10 MG tablet 10 mg PO QPM Qty: 0 Eliquis 5 MG tablet 5 mg PO BID Qty: 0 losartan [Cozaar] 100 MG tablet 100 mg PO QDAY Qty: 0 fluticasone propionate 50 mcg/actuation spray,suspension 1 spray NASAL DAILY verapamil 180 mg tablet extended release 180 mg PO BID hydrocodone-acetaminophen 5-325 mg tablet 1 tab PO DAILY lidocaine 5 % adhesive patch,medicated 1 patch Topical DAILY hydrochlorothiazide 25 mg tablet 1 tab PO DAILY furosemide [Lasix] 40 mg tablet 40 mg PO DAILY Qty: 14 0RF Referrals: Chaitanya Rush MD [Primary Care Provider] - Stand Alone Forms: Patient Portal/API
[2022-10-20 13:16] LABS: Add Manual Diff / Slide Review NO; Basophils Absolute Auto 100 /uL (0-100); Basophils Percent Auto 1.1 % (0-2); Eosinophils Absolute Auto 100 /uL (0-450); Hematocrit 27.7 % (36-46); Hemoglobin 8.6 g/dL (12.0-16.0); Lymphocytes Absolute Auto 1300 /uL (1100-4500); Lymphocytes Percent Auto 21.3 % (25-40); Mean Corpuscular HGB Conc 30.9 % (30-36); Mean Corpuscular Hemoglobin 25.4 PG (26-34); Mean Corpuscular Volume 82.4 fL (80-100); Monocytes Absolute Auto 500 /uL (0-900); Monocytes Percent Auto 8.5 % (3-14); Neutrophils Absolute Auto 4300 /uL (1500-7000); Neutrophils Percent Auto 68.1 % (50-75); Platelet Count 362 X10^3/uL (150-400); Red Blood Cell Count 3.37 X10^6/uL (4.0-5.2); Red Cell Distribution Width 19.3 % (11.6-14.8); White Blood Cell Count 6.3 X10^3/uL (4.5-11.0)
[2022-10-20 13:36] LABS: INR 1.6 (0.9-1.3); Prothrombin Time 18.4 SECONDS (10.1-12.7)
[2022-10-20] MEDS: propofoL 200 MG/20 ML VIAL 100 MG IV (13:44)
[2022-10-20] MEDS: SODIUM CHLORIDE 0.9% 500 ML 1000 ML IV (13:45)
[2022-10-20 13:46] LABS: BUN Creatinine Ratio 18.8 (6-22); Blood Urea Nitrogen 24 mg/dL (7-17); Carbon Dioxide 25 mmol/L (22-32); Chloride 103 mmol/L (98-107); Creatine Kinase 66 U/L (30-135); Estimated Glomerular Filt Rate 43 mL/min (>60); Glucose 104 mg/dL (80-110); HEMOLYSIS 38 (0-50); Potassium 3.8 mmol/L (3.4-5.1); Sodium 142 mmol/L (137-145)
[2022-10-20 13:59] LABS: NT-proBNP (BNP-Adult 18+) 12100 pg/mL (<450); Troponin I < 0.012 ng/mL (0.01-0.034)
== END 2022-10-20 15:23 | disposition home or self-care (01) ==
PROVIDERS: Emergency Provider Emergency Medicine; PCP Internal Medicine
DX: I48.20 Chronic atrial fibrillation, unspecified (principal); R06.02 Shortness of breath; Z79.01 Long term (current) use of anticoagulants; Z79.899 Other long term (current) drug therapy
CPT/HCPCS: 36415; 80048; 82550; 83735; 83880; 84484; 85025; 85610; 92960; 93005; 96360; 99152; 99284; 99285; J2704